=== PATIENT | female | born 1970 | race African-American/Black ===

== ENCOUNTER → 2019-03-23 | Outpatient (CLI) | payer OTHER | LOC: COL.VAS 08:15 | DX: R06.02 Shortness of breath (principal) ==

== ENCOUNTER → 2020-06-06 | Outpatient (CLI) | payer OTHER | LOC: COL.RAD 08:00 | DX: M25.551 Pain in right hip (principal) | CPT/HCPCS: J3301; Q9967 ==

== ENCOUNTER → 2020-06-10 | Outpatient (CLI) | payer OTHER | LOC: COL.PUL 10:00 | DX: M25.551 Pain in right hip (principal); R06.02 Shortness of breath | CPT/HCPCS: J7674 ==

== ENCOUNTER → 2020-08-04 | Outpatient (CLI) | payer OTHER | LOC: COL.VAS 07-19 12:45 | DX: R06.02 Shortness of breath (principal) ==